=== PATIENT | male | born 1980 | race Caucasian/White ===

== ENCOUNTER → 2018-03-02 | Outpatient (CLI) | payer SELFPAY ==
--- NOTE | 2018-03-02 15:51 | Diagnostic Imaging Report ---
EXAMINATION: Testicular ultrasound. INDICATION: Testicular pain. COMPARISON: There are no prior studies available for comparison. FINDINGS: Spectral and color flow images of the testicles were performed. Both testicles were identified. The right testicle measures 4.6 x 2.5 x 3.4 cm while the left testicle is estimated to be 3.2 x 2.1 x 3.4 cm. There is no evidence for a solid testicular mass, and there is good blood to each testicle. There is no sign of torsion. There does appear to be increased vascularity associated with the tail of the epididymis on the left. I suspect that this is due to epididymitis. There is no sign of epididymitis on the right. There is no evidence for hydrocele or varicocele formation. IMPRESSION: 1. There is no evidence for a solid testicular mass or for a torsion. 2. The increased vascularity associated with the tail of the epididymis on the left does suggest inflammation/infection. Most likely, this is related to epididymitis. Clinical followup is recommended. Dictated by: Dictated on workstation # [id number]
== END ==
LOC: RAD 14:55
PROVIDERS: ATTEND Nurse Practitioner Family
DX: N50.812 Left testicular pain (principal)
CPT/HCPCS: 76870